=== PATIENT | female | born 1990 | race Caucasian/White ===

== ENCOUNTER → 2017-10-22 | Outpatient (CLI) | payer BC | END | disposition home or self-care (01) | LOC: MAMMO 09:00 | DX: Z01.419 Encounter for gynecological examination (general) (routine) without abnormal findings (principal); O92.6 Galactorrhea ==

== ENCOUNTER → 2019-09-26 | Outpatient (CLI) | payer BC | END | disposition home or self-care (01) | LOC: ORTHO 02:07 | DX: M25.571 Pain in right ankle and joints of right foot (principal) ==